=== PATIENT | male | born 1955 | race Caucasian/White ===

== ENCOUNTER 2017-07-29 15:10 | Emergency (ER) | payer BC ==
[2017-07-29 15:32] VITALS: BP 131/85
[2017-07-29] MEDS ORDERED: Triamcinolone Acetonide 40 MG/ML 1 ML MDV INJECT ONE (15:40)
[2017-07-29] MEDS ORDERED: Take Home: predniSONE 20 MG, 2 Tab Pack PO ONE (15:45)
--- NOTE | 2017-07-29 17:18 | EDM.PDOC ---
ED HPI GENERAL MEDICAL PROBLEM - General Chief Complaint: Skin Complaint Stated Complaint: RASH Time Seen by Provider: 07/29/17 15:20 Source of Information: Reports: Patient History Limitations: Reports: No Limitations - History of Present Illness INITIAL COMMENTS - FREE TEXT/NARRATIVE: PtZhang presents to ER with complaints of rash to his L axillary area as well as to his hands. He denies any fever or chills. No chest pain or shortness of breath. He has not had any sore throat. No changes to his urine. Denies throat tightness or breathing troubles. States that he used a new body wash recently. Onset: Today Duration: Getting Worse Location: Reports: Upper Extremity, Right, Lower Extremity, Left - Related Data Allergies Allergy/AdvReac Type Severity Reaction Status Date / Time No Known Allergies Allergy Verified 07/29/17 15:17 Home Meds: Home Meds Levothyroxine Sodium [Synthroid] 175 mcg PO DAILY 05/27/15 [History] Multivitamin [Multivitamins] 1 tab PO DAILY 05/27/15 [History] Past Medical History Cardiovascular History: Reports: High Cholesterol Gastrointestinal History: Reports: Colon Polyp Genitourinary History: Reports: Other (See Below) Other Genitourinary History: elevated serum creatinine, nephroliathiasis Musculoskeletal History: Reports: Neck Pain, Chronic, Other (See Below) Other Musculoskeletal History: osteopenia Endocrine/Metabolic History: Reports: Hypothyroidism Other Endocrine/Metabolic History: impaired fasting glucose Hematologic History: Reports: Other (See Below) Other Hematologic History: systemic mastocytosis- requires premedication for anesthesia- - Past Surgical History Musculoskeletal Surgical History: Reports: Other (See Below) Social & Family History - Tobacco Use Smoking Status *Q: Never Smoker Used Tobacco, but Quit: Yes Month/Year Tobacco Last Used: QUIT 30 YEARS AGO - Recreational Drug Use Recreational Drug Use: No ED ROS GENERAL - Review of Systems Review Of Systems: See Below Constitutional: Reports: No Symptoms HEENT: Reports: No Symptoms Respiratory: Reports: No Symptoms Cardiovascular: Reports: No Symptoms Endocrine: Reports: No Symptoms GI/Abdominal: Reports: No Symptoms : Reports: No Symptoms Musculoskeletal: Reports: No Symptoms Skin: Reports: Pruritis, Erythema, Urticaria Neurological: Reports: No Symptoms Psychiatric: Reports: No Symptoms Hematologic/Lymphatic: Reports: No Symptoms Immunologic: Reports: No Symptoms ED EXAM, SKIN/RASH Exam: See Below General Appearance: Alert, WD/WN, No Apparent Distress Respiratory/Chest: No Respiratory Distress, Lungs Clear, Normal Breath Sounds, No Accessory Muscle Use, Chest Non-Tender Cardiovascular: Normal Peripheral Pulses, Regular Rate, Rhythm, No Edema, No Gallop, No JVD, No Murmur, No Rub Peripheral Pulses: 4+: Radial (L), Radial (R) GI/Abdominal: Normal Bowel Sounds, Soft, Non-Tender, No Organomegaly, No Distention, No Abnormal Bruit, No Mass (Male) Exam: Deferred Rectal (Males) Exam: Deferred Back Exam: Normal Inspection, Full Range of Motion, NT Extremities: Other (erythma to large area of L axilla. Erythema and urticaria to flexure of R elbow. Several discreet areas of erythema to fingers of both hands.) Course - Vital Signs Last Recorded V/S: Last Vital Signs Temp 35.9 C 07/29/17 15:18 Pulse 90 07/29/17 15:18 Resp 16 07/29/17 15:18 BP 131/85 07/29/17 15:18 Pulse Ox 96 07/29/17 15:18 - Orders/Labs/Meds Meds: Medications Discontinued Medications Generic Name Dose Route Start Last Admin Trade Name Freq PRN Reason Stop Dose Admin Prednisone 1 packet 07/29/17 15:45 07/29/17 15:53 Take Home: Prednisone 20 Mg, 2 Tab Pack PO 07/29/17 15:46 1 packet ONETIME ONE Administration Triamcinolone Acetonide 80 mg 07/29/17 15:40 07/29/17 15:53 Kenalog-40 INJECT 07/29/17 15:41 80 mg ONETIME ONE Administration Departure - Departure Time of Disposition: 15:35 Disposition: Home, Self-Care 01 Clinical Impression: Contact allergic reaction - Discharge Information Instructions: Pruritus, Allergies, Adult, [id number], Prednisone tablets Referrals: Jaxson Jarquin MD [Primary Care Provider] - Forms: ED Department Discharge Additional Instructions: Prednisone 40mg once daily until gone benadryl 50mg every 4-6 hours as needed for itching/discomfort follow-up in clinic in 5-7 days if not gradually improving. Return to ER if throat tightness of shortness of breath.
== END 2017-07-29 15:55 | disposition home or self-care (01) ==
LOC: VM.ED 15:10
DX: L50.0 Allergic urticaria (principal); E78.00 Pure hypercholesterolemia, unspecified; E03.9 Hypothyroidism, unspecified; Z79.899 Other long term (current) drug therapy; Z87.891 Personal history of nicotine dependence
CPT/HCPCS: 96372; 99283; A9270-GY; J3301

== ENCOUNTER 2020-10-20 03:15 | Emergency (ER) | payer BC ==
[2020-10-20 03:40] VITALS: BP 120/53; PULSE 57
[2020-10-20] MEDS ORDERED: Sodium Chloride 0.9% 10 ML Syringe FLUSH PRN (03:41)
[2020-10-20] MEDS ORDERED: Ondansetron 4 MG/2 ML SDV IVPUSH ONE (03:44)
[2020-10-20] MEDS: Sodium Chloride 0.9% 1,000 ML IV SCH (03:50)
[2020-10-20] MEDS: HYDROmorphone 1 MG/ML Syringe IVPUSH ONE (03:52)
[2020-10-20] MEDS: Ketorolac 15 MG/ML SDV IVPUSH ONE (03:52)
[2020-10-20] MEDS: Ondansetron 4 MG/2 ML SDV IVPUSH ONE (03:59)
[2020-10-20 04:08] LABS: CHLORIDE,CL 102 mmol/L (98-107); SODIUM,NA 137 mmol/L (136-145)
[2020-10-20 04:23] LABS: ANION GAP 11.8 mmol/L (5-15)
[2020-10-20] MEDS: Take Home: Acetaminophen/HYDROcodone 325-5 MG, 5 Tab Pack PO ONE (04:50)
--- NOTE | 2020-10-20 04:57 | EDM.PDOC ---
ED HPI GENERAL MEDICAL PROBLEM - General Chief Complaint: Abdominal Pain Stated Complaint: abdominal pain Time Seen by Provider: 10/20/20 03:25 Source of Information: Reports: Patient History Limitations: Reports: No Limitations - History of Present Illness INITIAL COMMENTS - FREE TEXT/NARRATIVE: Pt. presents to ER with complaints of RUQ abdominal pain. Pt. states that the pain started tonight at 10:30PM. He states that he feels gassy and full. He states that he has a history of kidney stones but states that this discomfort is different. Pt. denies any fever or chills. He complains of nausea, has not vomited. Denies any jaundice. He denies any substernal chest pain or shortness of breath. Pt. had a normal BM this evening. Denies any bloody stools. Denies any dark, tarry stools. Nursing staff states that he was quite uncomfortable and diaphoretic on arrival to ER. Onset: Today Onset Date: 10/20/20 Location: Reports: Abdomen Associated Symptoms: Reports: Diaphoresis, Nausea/Vomiting Treatments BIOMEDICAL SPECIALIST: Reports: Other (see below) Other Treatments BIOMEDICAL SPECIALIST: Tagamet Right Upper Abdominal Pain Score (Numeric/FACES): 7 - Related Data Allergies Allergy/AdvReac Type Severity Reaction Status Date / Time No Known Allergies Allergy Verified 07/29/17 15:17 Home Meds: Home Meds Levothyroxine Sodium [Synthroid] 175 mcg PO DAILY 05/27/15 [History] Multivitamin [Multivitamins] 1 tab PO DAILY 05/27/15 [History] Past Medical History Cardiovascular History: Reports: High Cholesterol Gastrointestinal History: Reports: Colon Polyp Genitourinary History: Reports: Other (See Below) Other Genitourinary History: elevated serum creatinine, nephroliathiasis Musculoskeletal History: Reports: Neck Pain, Chronic, Other (See Below) Other Musculoskeletal History: osteopenia Endocrine/Metabolic History: Reports: Hypothyroidism Other Endocrine/Metabolic History: impaired fasting glucose Hematologic History: Reports: Other (See Below) Other Hematologic History: systemic mastocytosis- requires premedication for anesthesia- - Past Surgical History GI Surgical History: Reports: Appendectomy Musculoskeletal Surgical History: Reports: Other (See Below) Other Musculoskeletal Surgeries/Procedures:: TENDON REPAIR Social & Family History - Tobacco Use Tobacco Use Status *Q: Former Tobacco User Used Tobacco, but Quit: Yes Month/Year Tobacco Last Used: unknown - Recreational Drug Use Recreational Drug Use: No ED ROS GENERAL - Review of Systems Review Of Systems: See Below Constitutional: Reports: Diaphoresis. Denies: Fever, Chills, Malaise, Weakness, Fatigue HEENT: Reports: No Symptoms Respiratory: Reports: No Symptoms Cardiovascular: Reports: No Symptoms Endocrine: Reports: No Symptoms GI/Abdominal: Reports: Abdominal Pain. Denies: Black Stool, Bloody Stool, Distension, Hematemesis, Hematochezia, Melena, Nausea, Vomiting : Reports: No Symptoms Musculoskeletal: Reports: No Symptoms Skin: Reports: Diaphoresis Neurological: Reports: No Symptoms Psychiatric: Reports: No Symptoms Hematologic/Lymphatic: Reports: No Symptoms Immunologic: Reports: No Symptoms ED EXAM, GENERAL - Physical Exam Exam: See Below Exam Limited By: No Limitations General Appearance: Alert, WD/WN, No Apparent Distress Head: Atraumatic, Normocephalic Neck: Normal Inspection, Supple, Full Range of Motion Respiratory/Chest: No Respiratory Distress, Lungs Clear, Normal Breath Sounds, No Accessory Muscle Use, Chest Non-Tender Cardiovascular: Normal Peripheral Pulses, Regular Rate, Rhythm, No Edema, No JVD Peripheral Pulses: 4+: Radial (L) GI/Abdominal: Soft, Non-Tender, No Distention, No Mass (Male) Exam: Deferred Rectal (Males) Exam: Deferred Extremities: Normal Inspection, Normal Range of Motion, Non-Tender, No Pedal Edema, Normal Capillary Refill Neurological: Alert, Oriented, CN II-XII Intact, Normal Cognition, Normal Gait, Normal Reflexes, No Motor/Sensory Deficits Psychiatric: Normal Affect, Normal Mood Skin Exam: Warm, Dry, Intact, Normal Color, No Rash Lymphatic: No Adenopathy #1 Interpretation Rhythm: NSR Elbert: Normal P-Wave: Present QRS: Normal ST-T: Normal QT: Normal Course - Vital Signs Last Recorded V/S: Last Vital Signs Temp 35.8 C L 10/20/20 03:20 Pulse 57 L 10/20/20 03:20 Resp 9 L 10/20/20 03:20 BP 120/53 L 10/20/20 03:20 Pulse Ox 100 10/20/20 03:20 - Orders/Labs/Meds Orders: Active Orders 24 hr Category Date Time Status EKG Documentation Completion [RC] STAT Care 10/20/20 03:41 Active Sodium Chloride 0.9% [Normal Saline] 1,000 ml Med 10/20/20 03:45 Active IV ASDIRECTED Sodium Chloride 0.9% [Saline Flush] Med 10/20/20 03:41 Active 10 ml FLUSH ASDIRECTED PRN Peripheral IV Insertion Adult [OM.PC] Routine Oth 10/20/20 03:41 Ordered Medication Orders Sodium Chloride (Normal Saline) 1,000 mls @ 1,000 mls/hr IV ASDIRECTED ARTI Last Admin: 10/20/20 03:50 Dose: 1,000 mls/hr Documented by: OPAL Sodium Chloride (Sodium Chloride 0.9% 10 Ml Syringe) 10 ml FLUSH ASDIRECTED PRN PRN Reason: Keep Vein Open Labs: Laboratory Tests 10/20/20 10/20/20 10/20/20 Range/Units 03:32 03:32 04:06 WBC 9.9 (4.0-10.0) x10^3/uL RBC 4.65 (4.5-6.0) x10^6/uL Hgb 15.4 (14.0-18.0) g/dL Hct 43.7 (40.0-52.0) % MCV 94.0 H (78.0-93.0) fL MCH 33.1 H (26.0-32.0) pg MCHC 35.2 (32.0-36.0) g/dL RDW Coeff of Jorge Alberto 12.5 (10.0-15.0) % Plt Count 278 (130-400) x10^3/uL Neut % (Auto) 79.8 (50.0-80.0) % Lymph % (Auto) 14.5 L (25.0-50.0) % [place] % (Auto) 4.5 (2.0-11.0) % Eos % (Auto) 1.0 (0.0-4.0) % Baso % (Auto) 0.2 (0.2-1.2) % Sodium 137 (136-145) mmol/L Potassium 3.8 (3.5-5.1) mmol/L Chloride 102 (98-107) mmol/L Carbon Dioxide 27 (21-32) mmol/L Anion Gap 11.8 (5-15) mmol/L BUN 19 H (7-18) mg/dL Creatinine 1.2 (0.70-1.30) mg/dL Est Cr Clr Drug Dosing 60.96 mL/min Estimated GFR (MDRD) > 60 Glucose 170 H (70-99) mg/dL Calcium 8.9 (8.5-10.1) mg/dL Corrected Calcium 9.2 (8.5-10.1) mg/dL Magnesium 2.0 (1.8-2.4) mg/dL Total Bilirubin 0.6 (0.2-1.0) mg/dL AST 10 L (15-37) U/L ALT 22 (16-63) U/L Alkaline Phosphatase 82 (46-116) U/L Troponin I High Sens 6 (<=76) ng/L C-Reactive Protein < 0.2 (<=0.9) mg/dL Total Protein 6.9 (6.4-8.2) g/dL Albumin 3.6 (3.4-5.0) g/dL Globulin 3.3 Albumin/Globulin Ratio 1.09 Urine Color Yellow (YELLOW) Urine Appearance Clear (CLEAR) Urine pH 6.0 (5.0-8.0) Ur Specific [place] >=1.030 Urine Protein Negative (NEGATIVE) mg/dL Urine Glucose (UA) Negative (NEGATIVE) mg/dL Urine Ketones Trace H (NEGATIVE) mg/dL Urine Occult Blood Negative (NEGATIVE) Urine Nitrite Negative (NEGATIVE) Urine Bilirubin Negative (NEGATIVE) Urine Urobilinogen 0.2 (0.2) EU/dL Ur Leukocyte Esterase Negative (NEGATIVE) Meds: Medications Generic Name Dose Route Start Last Admin Trade Name Freq PRN Reason Stop Dose Admin Sodium Chloride 1,000 mls @ 1,000 mls/hr 10/20/20 03:45 10/20/20 03:50 Normal Saline IV 1,000 mls/hr ASDIRECTED ARTI Administration Sodium Chloride 10 ml 10/20/20 03:41 Sodium Chloride 0.9% 10 Ml Syringe FLUSH ASDIRECTED PRN Keep Vein Open Discontinued Medications Generic Name Dose Route Start Last Admin Trade Name Freq PRN Reason Stop Dose Admin Hydrocodone Bitart/Acetaminophen 1 packet 10/20/20 04:49 Take Home: Acetaminophen/Hydrocodone 325-5 Mg, 5 Tab Pack PO 10/20/20 04:50 ONETIME ONE Hydromorphone HCl 1 mg 10/20/20 03:43 10/20/20 03:52 Hydromorphone 1 Mg/Ml Syringe IVPUSH 10/20/20 03:44 1 mg ONETIME ONE Administration Ketorolac Tromethamine 15 mg 10/20/20 03:43 10/20/20 03:52 Ketorolac 15 Mg/Ml Sdv IVPUSH 10/20/20 03:44 15 mg ONETIME ONE Administration Ondansetron HCl 4 mg 10/20/20 03:42 10/20/20 03:59 Ondansetron 4 Mg/2 Ml Sdv IVPUSH 10/20/20 03:43 4 mg ONETIME ONE Administration Ondansetron HCl 4 mg 10/20/20 03:44 Ondansetron 4 Mg/2 Ml Sdv IVPUSH 10/20/20 03:45 ONETIME ONE - Re-Assessments/Exams Free Text/Narrative Re-Assessment/Exam: IV access established. Pt. was given zofran 4mg IV, toradol 15mg IV, and dilaudi d 1 mg IV. Pt. reported significant improvement in discomfort after being given the medication. Departure - Departure Time of Disposition: 04:57 Disposition: Home, Self-Care 01 Clinical Impression: RUQ abdominal pain - Discharge Information Instructions: Acetaminophen; Hydrocodone tablets or capsules, Cholelithiasis, Gallbladder Eating Plan Referrals: PCP,None [Primary Care Provider] - Forms: ED Department Discharge Additional Instructions: You will be contacted regarding an appointment for ultrasound. Ibuprofen 200mg 3 tabs every 6 hours as needed for pain. Lortab 5/325mg 1 every 6 hours for pain that does not go away with ibuprofen Follow eating plan as outlined. Minimize consumption of fatty foods such as cheese, meat, butter, ice cream. Call if you have any questions. Sepsis Event Note (ED) - Evaluation Sepsis Screening Result: No Definite Risk - Focused Exam Vital Signs: Vital Signs Temp Pulse Resp BP Pulse Ox 10/20/20 03:20 35.8 C L 57 L 9 L 120/53 L 100 - Problem List Review Problem List Initiated/Reviewed/Updated: Yes - My Orders Last 24 Hours: My Active Orders 10/20/20 03:41 EKG Documentation Completion [RC] STAT Sodium Chloride 0.9% [Saline Flush] 10 ml FLUSH ASDIRECTED PRN Peripheral IV Insertion Adult [OM.PC] Routine 10/20/20 03:45 Sodium Chloride 0.9% [Normal Saline] 1,000 ml IV ASDIRECTED - Assessment/Plan Last 24 Hours: My Active Orders 10/20/20 03:41 EKG Documentation Completion [RC] STAT Sodium Chloride 0.9% [Saline Flush] 10 ml FLUSH ASDIRECTED PRN Peripheral IV Insertion Adult [OM.PC] Routine 10/20/20 03:45 Sodium Chloride 0.9% [Normal Saline] 1,000 ml IV ASDIRECTED Plan: Pt. was discharged. Pain likely secondary to gallbladder disease. Will get him scheduled for an ultrasound either at the hospital or clinic at the next possible time. Pt. was given a gallbladder eating plan and was told to avoid fatty/greasy foods. Pt. was advised to use ibuprofen for pain, and was given a 5 pack or lortab 5/325mg with instructions to take one every 6 hours of the ibuprofen isn't helping. Follow-up in clinic in 7-10 days.
== END 2020-10-20 04:55 | disposition home or self-care (01) ==
LOC: VM.ED 03:15
DX: R10.11 Right upper quadrant pain (principal); E03.9 Hypothyroidism, unspecified; Z79.899 Other long term (current) drug therapy; Z87.891 Personal history of nicotine dependence
CPT/HCPCS: 80053; 81003; 83735; 84484; 85025; 86140; 93005; 93010; 96374; 96375; 99284; 99284-25; A9270-GY; J1170; J1885; J2405; J7030